=== PATIENT | male | born 1965 | race Caucasian/White ===

== ENCOUNTER 2020-08-23 17:38 | Outpatient (CLI) | payer MEDICARE, MEDICAID, SELFPAY ==
--- NOTE | ~2020-08-23 | CT_ITS ---
EXAMINATION: CT lung screening DATE: 08/23/2020 17:53 INDICATION: Personal history of tobacco dependence, current smoker with 30 pack year history TECHNIQUE: Computed tomography (CT) of the chest was performed without intravenous contrast. The dose -length product (DLP) was 126.00 mGy-cm. Automated exposure control and iterative reconstruction tech [employer] were employed. COMPARISON: 04/15/2019 FINDINGS: There is a stable 3 mm nodule in the right middle lobe. A stable 6 mm nodule is present in the right lower lobe. There are stable lymph nodes in association with the major fissures. No new pul monary nodule is identified. The lungs are free of acute opacities. There is mild emphysema. No pleur al effusion or pneumothorax is identified. No pathologically enlarged thoracic lymph nodes are identi fied. The heart size is normal. Calcified coronary artery atherosclerosis is noted. IMPRESSION: 1. Lung-RADS category 2: Benign appearance or behavior. Continue annual screening with noncontrast lo w-dose chest CT in 12 months. Reviewed, dictated and finalized at location A. IMPRESSION: 1. Lung-RADS category 2: Benign appearance or behavior. Continue annual screeni ng with noncontrast low-dose chest CT in 12 months.
== END 2020-08-23 17:39 | disposition home or self-care (01) ==
PROVIDERS: PCP Internal Medicine; Visit Provider Clinical Nurse Specialist
DX: Z12.2 Encounter for screening for malignant neoplasm of respiratory organs (principal); Z87.891 Personal history of nicotine dependence
CPT/HCPCS: G0297

== ENCOUNTER 2021-09-02 12:23 | Outpatient (CLI) | payer MEDICARE, MEDICAID, SELFPAY ==
--- NOTE | ~2021-09-02 | CT_ITS ---
EXAMINATION:CT diagnostic chest wo con DATE: 09/02/2021 12:41 INDICATION: Solitary pulmonary nodule. TECHNIQUE: Computed tomography (CT) of the chest was performed without intravenous contrast. Automate d exposure control and iterative reconstruction technique were employed. The dose-length product (DLP ) was 132.05 mGy-cm. COMPARISON: Chest CT 08/23/2020 FINDINGS: There is mild emphysema. There is mild atelectasis in left lower lobe. There is a 4 mm nodu le in right middle lobe. There is a 6 mm nodule in right lower lobe. There is a 7 mm nodule at left m ajor fissure. There is a 4 mm nodule left major fissure. These findings are stable from 08/23/2020. No pleural effusion. The heart size is normal. No pericardial effusion. There is mild thoracic spondylo sis. IMPRESSION: 1. Lung-RADS category 2: Benign appearance or behavior. Continue annual screening with noncontrast lo w-dose chest CT in 12 months. Reviewed, dictated and finalized at location A. IMPRESSION: 1. Lung-RADS category 2: Benign appearance or behavior. Continue annual screeni ng with noncontrast low-dose chest CT in 12 months.
== END 2021-09-02 12:24 | disposition home or self-care (01) ==
PROVIDERS: PCP Internal Medicine; Visit Provider Clinical Nurse Specialist
DX: R91.1 Solitary pulmonary nodule (principal)
CPT/HCPCS: 71250

== ENCOUNTER 2023-06-04 10:11 | Outpatient (CLI) | payer MEDICARE, MEDICAID, SELFPAY ==
[2023-06-04 19:09] LABS: Add Urine Microscopic? YES; Appearance Urine Turbid (Clear); Bacteria Urine None Seen /hpf; Bilirubin Urine Negative (Negative); Blood Urine Negative (Negative); Calcium Oxalate Crystals Urine Present /hpf; Color Urine Dark Yellow (Yellow); Glucose Urine UA Negative (Negative); Ketones Urine Trace mg/dL (Negative); Leukocyte Esterase Ur Trace LEU/UL (Negative); Need Manual Microscopic Reviewed; Nitrate Urine Negative (Negative); Non Pathogenic Casts 0-2; Protein Urine Trace mg/dL (Negative); Spermatozoa Urine Present; Squamous Epithelial Cell Urine None seen /hpf (Few); WBC Urine 0-5 /hpf
[2023-06-04 19:14] LABS: Alanine Aminotransferase 15 U/L (6-50); Albumin Level 3.9 g/dL (3.5-5.1); Alkaline Phosphatase 66 U/L (38-126); Anion Gap 3 mmol/L (8-16); Aspartate Amino Transferase 31 U/L (17-59); Bilirubin,Total 0.6 mg/dL (0.2-1.3); Blood Urea Nitrogen 13 mg/dL (9-20); Calcium 9.2 mg/dL (8.4-10.2); Carbon Dioxide 32 mmol/L (22-30); Chloride 104 mmol/L (98-107); Cholesterol 255 mg/dL (0-200); Estimated Glomerular Filt Rate > 60; Glucose 102 mg/dL (65-110); HDL Direct 38 mg/dL; Potassium 4.3 mmol/L (3.4-5.0); Sodium 139 mmol/L (137-145); Triglycerides 139 mg/dL (<150)
[2023-06-04 19:25] LABS: LDL Cholesterol Direct 160 mg/dL
[2023-06-04 19:43] LABS: Prostate Specific Antigen 0.4 ng/mL (< OR = 4.0)
[2023-06-04 19:45] LABS: Basophils Absolute Auto 0.1 K/mm3 (0.0-0.1); Basophils Percent Auto 0.7 % (0.2-1.2); Eosinophils Absolute Auto 0.3 K/mm3 (0-0.3); Eosinophils Percent Auto 3.5 % (0-4.4); Hematocrit 42.9 % (42.0-52.0); Hemoglobin 14.1 g/dL (14.0-18.0); Immature Granulocyte Absolute 0.03 K/mm3 (0.00-0.031); Immature Granulocyte Percent A 0.3 % (0-0.5); Lymphocytes Absolute Auto 2.44 K/mm3 (0.9-3.2); Lymphocytes Percent Auto 25.4 % (18.3-44.2); Mean Corpuscular HGB Conc 32.9 g/dl (32-36); Mean Corpuscular Hemoglobin 30.9 pg (26-34); Mean Corpuscular Volume 94.1 fl (80-100); Mean Platelet Volume 10.8 fl (7.4-10.4); Monocytes Absolute Auto 0.5 K/mm3 (0.1-0.6); Monocytes Percent Auto 5.2 % (2.6-8.5); Neutrophils Absolute Auto 6.2 K/mm3 (1.3-6.7); Neutrophils Percent Auto 64.9 % (45.5-73.1); Platelet Count Result 318 k/mm3 (150-375); Red Blood Count 4.56 M/mm3 (4.6-6.20); Red Cell Distribution Width 13.9 % (11.5-14.5); White Blood Count 9.6 K/mm3 (4.5-10.0)
[2023-06-04 20:33] LABS: Hemoglobin A1C 5.9 % (<5.7)
== END 2023-06-04 10:12 | disposition home or self-care (01) ==
LOC: ANHGOSHLAB 10:12
PROVIDERS: PCP Internal Medicine; Visit Provider Nurse Practitioner
DX: R73.03 Prediabetes (principal); Z12.5 Encounter for screening for malignant neoplasm of prostate; Z13.29 Encounter for screening for other suspected endocrine disorder; E78.5 Hyperlipidemia, unspecified; N40.0 Benign prostatic hyperplasia without lower urinary tract symptoms
CPT/HCPCS: 36415; 80053; 80061; 81001; 83036; 84153; 85025; G0103

== ENCOUNTER 2023-08-20 09:16 | Day surgery (SDC) | payer MEDICARE, MEDICAID, SELFPAY ==
[2023-07-09 10:49] VITALS: BMI 24.8
[2023-08-20 10:43] VITALS: BP 116/87; PULSE 80; RESP 20; TEMP 36.4; O2SAT 97; BMI 24.0
--- NOTE | 2023-08-20 10:48 | WPDANESEPPF ---
Anes - Initial Pre Proc Eval Procedure: Operation Date: 08/20/23 11:30 Proposed Procedures p Screening Colonoscopy - Raymundo De La Vega MD Date/Time: 08/20/23 10:48 Surgeon: Raymundo De La Vega MD Pre Op Diagnosis: Neoplasm Screening Patient Data Age: 58 Gender: M Height: 1.8 m Weight: 78.2 kg Last Vital Signs Temp 36.4 C 08/20/23 10:43 Pulse 80 08/20/23 10:43 Resp 20 08/20/23 10:43 BP 116/87 08/20/23 10:43 Pulse Ox 97 08/20/23 10:43 O2 Del Method Room Air 08/20/23 10:43 Allergies Allergy/AdvReac Type Severity Reaction Status Date / Time haloperidol Allergy Unknown Muscle Verified 08/20/23 10:33 Spasms Home Medications Medication Instructions Recorded Confirmed Type buspirone 10 mg tablet 20 mg PO TID 08/09/20 08/20/23 History duloxetine 60 mg capsule,delayed 60 mg PO DAILY 08/09/20 08/20/23 History release (Cymbalta) fluoxetine 20 mg capsule (Prozac) 20 mg PO DAILY 08/09/20 08/20/23 History atorvastatin 40 mg tablet 40 mg PO DAILY #90 tabs 06/04/23 08/20/23 Rx quetiapine 300 mg tablet,extended 300 mg PO QPM 06/04/23 08/20/23 History release 24 hr trazodone 50 mg tablet 50 mg PO QHS 06/04/23 08/20/23 History varenicline 0.5 mg (11)-1 mg (42) See Rx Instructions PO PER PKG DIR 06/04/23 08/20/23 Rx tablets in a dose pack (Chantix #53 ea Starting Month Box) sodium,potassium,mag sulfates 17.5 See Rx Instructions PO .COMPLEX 07/09/23 08/20/23 Rx gram-3.13 gram-1.6 gram oral soln #354 mL (Suprep Bowel Prep Kit) varenicline 1 mg tablet (Chantix 1 mg PO BID #60 tabs 08/11/23 08/20/23 Rx Continuing Month Box) Patient hx anesthesia problems: none Family hx anesthesia problems: none Results Review: All pre-operative results and documents have been reviewed as part of the pre-operative evaluation. PMFSH Past Medical History Medical History Depression Herpes Hyperlipidemia Prediabetes Surgical History Surgical History H/O knee surgery 2013 History of carpal tunnel surgery Wrist and elbow 2010 Social History Social History (Updated 06/04/23 @ 09:46 by Anna Nguyen [facility]) Smoking packs per day: 1 Smoking cigarettes per day: 20.0 Smoking status: Current every day smoker Alcohol intake: former Lack of Transportation: No Lack of Food: Often True Current Housing: I Have Housing Concerned About Future Housing: No Difficulty Paying Gas/Electric Bills: YES Difficulty Paying for Meds: No Currently Unemployed: No Education: High School Diploma/GED Difficulty w/ Childcare or Family Care: No Living arrangements: alone Spiritual care concerns: No Anes - Eval Final PreProcedure Day of Procedure 08/20/23 10:48 Heart: regular rate and rhythm Lungs: decreased breath sounds Airway: Mallampati scale class II Neurological: alert and oriented Last oral intake: >/= 8 hours ASA classification: III Emergent: no Anesthetic plan: proceed Anesthesia type and monitoring: general GIVS and standard monitoring Results Review: All pre-operative results and documents have been reviewed as part of the pre-operative evaluation. Informed Consent: The patient's anesthetic plan and its attendant risks and benefits were discussed with the patient/family/POA. Questions were solicited and answers provided to the satisfaction of the patient/family/POA.
--- NOTE | 2023-08-20 10:52 | PM.HPGS ---
History of Present Illness History of Present Illness Consent: Risks, benefits, and alternatives have been discussed and questions answered. Patient agrees to proceed with procedure. Chief complaint: Neoplasm Screening Narrative: Ryan Colón is a 58 year old male Presents for screening colonoscopy. Patient's current weight appetite and bowel movements are normal. Patient denies abdominal pain. Has had no bleeding. Family history is noncontributory. Previous colonoscopy 10 years ago was unremarkable. Review of Systems Review of Systems: review of systems noncontributory. [facility] Past Medical History Medical History Depression Herpes Hyperlipidemia Prediabetes Surgical History Surgical History H/O knee surgery 2012 History of carpal tunnel surgery Wrist and elbow 2010 Social History Social History (Updated 06/04/23 @ 09:46 by Anna Nguyen [facility]) Smoking packs per day: 1 Smoking cigarettes per day: 20.0 Smoking status: Current every day smoker Alcohol intake: former Lack of Transportation: No Lack of Food: Often True Current Housing: I Have Housing Concerned About Future Housing: No Difficulty Paying Gas/Electric Bills: YES Difficulty Paying for Meds: No Currently Unemployed: No Education: High School Diploma/GED Difficulty w/ Childcare or Family Care: No Living arrangements: alone Spiritual care concerns: No Meds Home Medications and Allergies Home Medications Medication Instructions Recorded Confirmed Type buspirone 10 mg tablet 20 mg PO TID 08/09/20 08/20/23 History duloxetine 60 mg capsule,delayed 60 mg PO DAILY 08/09/20 08/20/23 History release (Cymbalta) fluoxetine 20 mg capsule (Prozac) 20 mg PO DAILY 08/09/20 08/20/23 History atorvastatin 40 mg tablet 40 mg PO DAILY #90 tabs 06/04/23 08/20/23 Rx quetiapine 300 mg tablet,extended 300 mg PO QPM 06/04/23 08/20/23 History release 24 hr trazodone 50 mg tablet 50 mg PO QHS 06/04/23 08/20/23 History varenicline 0.5 mg (11)-1 mg (42) See Rx Instructions PO PER PKG DIR 06/04/23 08/20/23 Rx tablets in a dose pack (Chantix #53 ea Starting Month Box) sodium,potassium,mag sulfates 17.5 See Rx Instructions PO .COMPLEX 07/09/23 08/20/23 Rx gram-3.13 gram-1.6 gram oral soln #354 mL (Suprep Bowel Prep Kit) varenicline 1 mg tablet (Chantix 1 mg PO BID #60 tabs 08/11/23 08/20/23 Rx Continuing Month Box) Allergies Allergy/AdvReac Type Severity Reaction Status Date / Time haloperidol Allergy Unknown Muscle Verified 08/20/23 10:33 Spasms Vital Signs Vital Signs - 24 hr 08/20/23 10:43 Temperature 97.6 F Pulse Rate 80 Respiratory Rate 20 Blood Pressure 116/87 Pulse Oximetry 97 Oxygen Delivery Room Air Exam Narrative: Physical exam reveals patient to be alert. Vital signs stable. HEENT exam is unremarkable. Patient is anicteric. Lungs are clear to auscultation and to percussion. Heart is without murmur or extra sounds. Abdomen bowel sounds are present soft nontender with no organomegaly. Digital external rectal exam is normal. Assessment and Plan Assessment and plan (1) Screening for colon cancer: Code(s): Z12.11 - Encounter for screening for malignant neoplasm of colon Status: Acute Assessment and Plan: Patient presents today for screening colonoscopy. He appears to be at average risk for colon polyps. Further recommendations may be given after endoscopy.
[2023-08-20] MEDS: LACTATED RINGERS 1,000 ML 150 ML IV CONT (10:55)
[2023-08-20 11:37] VITALS: BP 116/85; PULSE 80; RESP 20; O2SAT 93
[2023-08-20 11:47] VITALS: BP 124/86; PULSE 76; RESP 20; O2SAT 96
[2023-08-20 11:57] VITALS: BP 122/76; PULSE 79; RESP 18; O2SAT 99
--- NOTE | 2023-08-20 13:18 | WPDANESPN ---
Anes - Prog Note Post-Op Date/Time: 08/20/23 13:18 Cardiovascular status: normal Respiratory status: normal Airway patency: baseline Mental status: baseline Post-Op hydration status: normal Vital Signs: Last Vital Signs Temp 36.4 C 08/20/23 10:43 Pulse 79 08/20/23 11:57 Resp 18 08/20/23 11:57 BP 122/76 08/20/23 11:57 Pulse Ox 99 08/20/23 11:57 O2 Del Method Room Air 08/20/23 11:57 Pain Score (VAS): 0 I/O: Intake & Output 08/19/23 08/20/23 08/20/23 23:59 07:59 15:59 Intake Total 800 Balance 800 Patient Feedback: Patient satisfied with anesthetic care.
== END 2023-08-20 12:32 | disposition home or self-care (01) ==
PROVIDERS: PCP Internal Medicine; Visit Provider Internal Medicine Gastroenterology
PROC: 0DJD8ZZ Inspection of Lower Intestinal Tract, Via Natural or Artificial Opening Endoscopic (ICD-10-PCS; CPT 45378; principal; 2023-08-20 11:30)
DX: Z12.11 Encounter for screening for malignant neoplasm of colon (principal); K64.8 Other hemorrhoids
CPT/HCPCS: 45378

== ENCOUNTER 2024-08-24 12:14 | Outpatient (CLI) | payer MEDICARE, MEDICAID, SELFPAY ==
--- NOTE | ~2024-08-24 | CT_ITS ---
CT Scan of the Chest without Contrast: Clinical Indication: Lung cancer screening, nicotine dependence Technique: Contiguous sections were acquired throughout the chest without intravenous contrast. Dose reduction technique was used on this scan by utilizing automated exposure control and iterative recon struction technique. The dose-length product (DLP) was 161.69 mGy-cm. COMPARISON: 09/02/2021 Findings: There is no evidence of any significant mediastinal, hilar or axillary lymphadenopathy. Coronary tamanna ry calcifications are noted. There is no evidence of pleural or pericardial effusion. Stable 3 mm right middle lobe pulmonary nodule. Stable 5 mm right lower lobe pulmonary nodule (axial image 92). Stable left lower lobe fissural nodule. Images through the upper abdomen reveal no abnormalities. Impression: Lung RADS 2: Benign appearance. 12 month follow-up screening CT advised. Reviewed, dictated and finalized at location . Impression: Lung RADS 2: Benign appearance. 12 month follow-up screening CT advised.
== END 2024-08-24 12:15 | disposition home or self-care (01) ==
LOC: ANHIMG 12:18
PROVIDERS: PCP Internal Medicine; Visit Provider Nurse Practitioner
DX: Z12.2 Encounter for screening for malignant neoplasm of respiratory organs (principal); Z87.891 Personal history of nicotine dependence
CPT/HCPCS: 71271

== ENCOUNTER 2025-08-15 11:47 | Outpatient (CLI) | payer MEDICARE, MEDICAID, SELFPAY ==
[2025-08-15 19:38] LABS: Alanine Aminotransferase 15 U/L (6-50); Albumin Level 3.9 g/dL (3.5-5.1); Alkaline Phosphatase 88 U/L (38-126); Anion Gap 6 mmol/L (4-12); Aspartate Amino Transferase 37 U/L (17-59); Bilirubin,Total 0.4 mg/dL (0.2-1.3); Blood Urea Nitrogen 14 mg/dL (9-20); Calcium 9.0 mg/dL (8.4-10.2); Carbon Dioxide 27 mmol/L (22-30); Chloride 104 mmol/L (98-107); Cholesterol 155 mg/dL (0-200); Estimated Glomerular Filt Rate > 60; Glucose 109 mg/dL (65-110); HDL Direct 49 mg/dL; Potassium 3.9 mmol/L (3.4-5.0); Sodium 137 mmol/L (137-145); Total Protein 7.1 g/dL (6.3-8.2); Triglycerides 76 mg/dL (<150)
[2025-08-15 19:41] LABS: Hematocrit 42.9 % (42.0-52.0); Hemoglobin 13.7 g/dL (14.0-18.0); Immature Granulocyte Percent A 0.3 % (0-0.5); Lymphocytes Absolute Auto 1.63 K/mm3 (0.9-3.2); Mean Corpuscular HGB Conc 31.9 g/dl (32-36); Mean Corpuscular Hemoglobin 30.6 pg (26-34); Mean Corpuscular Volume 96.0 fl (80-100); Nucleated Red Blood Cells Absolute Auto 0.000 K/mm3 (0.0-0.012); Nucleated Red Blood Cells Perc 0.0 % (0.0-0.2); Platelet Count Result 307 k/mm3 (150-375); Red Blood Count 4.47 M/mm3 (4.6-6.20); White Blood Count 9.6 K/mm3 (4.5-10.0)
[2025-08-15 20:20] LABS: Hemoglobin A1C 6.0 % (<5.7)
[2025-08-15 20:47] LABS: Prostate Specific Antigen 0.4 ng/mL (< OR = 4.0)
== END 2025-08-15 11:48 | disposition home or self-care (01) ==
LOC: ANHGOSHLAB 11:48
PROVIDERS: PCP Internal Medicine; Visit Provider Nurse Practitioner
DX: Z12.5 Encounter for screening for malignant neoplasm of prostate (principal); E78.5 Hyperlipidemia, unspecified; R73.03 Prediabetes; Z13.29 Encounter for screening for other suspected endocrine disorder
CPT/HCPCS: 36415; 80053; 80061; 83036; 84153; 85025; G0103